=== PATIENT | male | born 1970 | race American Indian/Alaskan Native ===

== ENCOUNTER 2019-12-19 10:14 | Emergency (ER) | payer OTHER ==
[2019-12-19 10:24] VITALS: BP 120/82
[2019-12-19] MEDS ORDERED: traMADol 50 MG TAB PO ONE (11:13)
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
== END 2019-12-19 12:39 | disposition home or self-care (01) ==
LOC: ED 10:14
DX: S46.912A Strain of unspecified muscle, fascia and tendon at shoulder and upper arm level, left arm, initial encounter (principal); E11.9 Type 2 diabetes mellitus without complications; Z79.899 Other long term (current) drug therapy; V49.49XA Driver injured in collision with other motor vehicles in traffic accident, initial encounter; Y93.89 Activity, other specified; Y92.89 Other specified places as the place of occurrence of the external cause; Y99.8 Other external cause status
CPT/HCPCS: 99283